=== PATIENT | male | born 1970 | race Caucasian/White ===

== ENCOUNTER 2022-08-27 19:40 | Emergency (ER) | payer MEDICAID ==
[~2022-08-27] VITALS: Ht 172.7 cm; Wt 88.0 kg
[2022-08-27 20:15] VITALS: BP 120/96
--- NOTE | 2022-08-27 20:18 | NUR ---
TO LOBBY A/W BED AMBULATORY
[2022-08-27] MEDS ORDERED: TETRACAINE HCL/PF 0.5% OPTH 4 ML BTL OP ONE (20:50)
[2022-08-27] MEDS ORDERED: FLUORESCEIN OPTH STRIP 1 MG OP ONE (21:35)
--- NOTE | 2022-08-27 21:35 | NUR ---
PT AMBULATED TO BED #9
[2022-08-27] MEDS ORDERED: [UNRECOGNIZED DRUG - CODE] OP (22:25)
[2022-08-27 22:31] VITALS: BP 120/96
== END 2022-08-27 22:31 | disposition home or self-care (01) ==
LOC: MED 19:40
DX: S05.02XA Injury of conjunctiva and corneal abrasion without foreign body, left eye, initial encounter (principal); X58.XXXA Exposure to other specified factors, initial encounter; Y93.89 Activity, other specified; Y92.89 Other specified places as the place of occurrence of the external cause; Y99.8 Other external cause status
CPT/HCPCS: 99283